=== PATIENT | male | born 1995 | race Two or more races ===

== ENCOUNTER 2019-08-03 21:20 | Inpatient (IN) | payer MEDICAID ==
[~2019-08-03] VITALS: Ht 198.1 cm; Wt 172.4 kg
--- NOTE | 2019-08-03 21:24 | NUR ---
PT AAOX4. AMBULATORY BIBRA C/O PALPITATIONS S/P DRINKING COFFEE. PT DENIES CP. STATED HE FEELS BETTER NOW BUT ONCE HE RUNS, HIS HEART PALPATES. VSS. EMT AT BEDSIDE FOR EKG. AWAITING MD FOR EVAL AND ORDERS.
--- NOTE | 2019-08-03 21:40 | NUR ---
PHLEBTOMIST AT BEDSIDE
[2019-08-03 21:47] LABS: BASOPHILS # (AUTO) 0.1 /CMM (0.0-0.2); BASOPHILS % (AUTO) 0.7 % (0.0-2.0); EOSINOPHILS % (AUTO) 3.6 % (0.0-6.0); HEMATOCRIT 45 % (39-51); LYMPHOCYTES # (AUTO) 3.1 /CMM (0.8-4.8); LYMPHOCYTES % (AUTO) 25.4 % (20.0-44.0); MEAN CORPUSCULAR HGB CONC 34 g/dl (31.0-36.0); MEAN CORPUSCULAR VOLUME 85 fL (80-96); MONOCYTES # (AUTO) 0.6 /CMM (0.1-1.30); MONOCYTES % (AUTO) 4.8 % (2.0-12.0); NEUTROPHILS # (AUTO) 8.1 /CMM (1.8-8.9); NEUTROPHILS % (AUTO) 65.5 % (43.0-81.0); PLATELET COUNT (AUTO) 257 /CMM (150-450); RED BLOOD CELL COUNT(AUTO) 5.23 MIL/uL (4.5-6.0); WHITE BLOOD COUNT (AUTO) 12.3 K/uL (4.3-11.0)
[2019-08-03 21:55] LABS: CALCIUM, SERUM 9.4 mg/dL (8.5-10.1); CARBON DIOXIDE 29 mmol/L (21-32); CHLORIDE 104 mmol/L (98-107); GLUCOSE 127 mg/dL (74-106); POTASSIUM 3.8 mmol/L (3.5-5.1); SODIUM SERUM 140 mmol/L (136-145); UREA NITROGEN, BLOOD 9 mg/dL (7-18)
[2019-08-03 22:03] LABS: ALCOHOL, BLOOD < 3 mg/dL (0-0); MAGNESIUM 2.2 mg/dL (1.8-2.4)
[2019-08-03 22:25] LABS: THYROID STIMULATING HORMONE 2.695 uIU/mL (0.358-3.74)
[2019-08-03] MEDS ORDERED: IV NS 0.9% 1,000 ML IV ONE (22:30)
[2019-08-03] MEDS ORDERED: LORAZEPAM INJ 2 MG/ML VIAL IV ONE (22:30)
--- NOTE | 2019-08-03 22:58 | NUR ---
BED ASSIGNMENT 326-1
--- NOTE | 2019-08-03 23:51 | NUR ---
DR. SWENSON SPEAKING WITH HOSPITALIST
[2019-08-04] VITALS: BP 155/74
--- NOTE | 2019-08-04 00:21 | NUR ---
REPORT GIVEN TO GARRICK JULIAN FOR LUIGI
--- NOTE | 2019-08-04 00:28 | NUR ---
PT TRANSFERED PER ACLS PROT[employer]
[2019-08-04 00:30] VITALS: BP 155/74
--- NOTE | 2019-08-04 00:30 | NUR ---
PET AMBASSADORPERSONAL SHOPPER NOTES PATIENT TRANSFERRED FROM ER VIA [facility] IN STABLE CONDITION; ADMITTED FOR NEW ONSET AFIB. A/OX4. ABLE TO VERBALIZE NEEDS. PATIENT DENIES ANY SOB OR CHEST PAIN. TELE MONITOR READING AFIB, HEART RATE 95-100. IV PRESENT ON RIGHT HAND, SIZE 20, INTACT & PATENT HEP LOCKED. BELONGINGS REVIEWED WITH PATIENT AND BELONGINGS LIST PLACED IN CHART. MRSA SWAB COMPLETED IN ER. NO HOME MEDS REPORTED. DRAPERY ROD ASSEMBLER HOME ADMINISTRATOR, MEAGHAN BEAULIEU MADE AWARE OF NEW ADMISSION; AWAITING ORDERS. SAFETY MEASURES IN PLACE AND PATIENT'S NEEDS MET. BED LOCKED, SIDE RAILS X2, CALL LIGHT WITHIN REACH. WILL CONTINUE TO MONITOR.
[2019-08-04] MEDS ORDERED: ACETAMINOPHEN 325 MG TABLET PO PRN (01:30)
[2019-08-04] MEDS ORDERED: hydrALAZINE HCL IV 20 MG VIAL IV PRN (01:30)
[2019-08-04] MEDS ORDERED: MAG HYDROX/AL HYDROX/SIMETH 30 ML UDC PO PRN (01:30)
[2019-08-04] MEDS ORDERED: ONDANSETRON HCL/PF 4 MG/2 ML VIAL IVP PRN (01:30)
[2019-08-04] MEDS ORDERED: Z GUARD REMEDY 2 OZ OINT TP PRN (01:30)
[2019-08-04] MEDS ORDERED: MAGNESIUM HYDROXIDE 30 ML UDC PO PRN (01:30)
[2019-08-04 04:00] VITALS: BP 146/85
[2019-08-04 04:01] VITALS: BP 146/85
--- NOTE | 2019-08-04 06:55 | NUR ---
BAG INSPECTOR CLOSING NOTES PATIENT SLEEPING IN BED, EASY TO AWAKEN. A/OX4. NO S/S SOB; BREATHING IS EVEN AND LABORED. TELE MONITOR READING A-FIB, HEART RATE 80-90S. IV ON RIGHT HAND, SIZE 20, REMAINS INTACT & PATENT, HEP LOCKED. SAFETY MEASURES IN PLACE AND PATIENT'S NEEDS MET. BED LOCKED, SIDE RAILS X2, CALL LIGHT WITHIN REACH. WILL ENDORSE TO DAY SHIFT NURSE PLAN OF CARE.
[2019-08-04] MEDS ORDERED: PANTOPRAZOLE 40 MG TABLET.DR PO SCH (07:30)
[2019-08-04 08:00] VITALS: BP 125/94
--- NOTE | 2019-08-04 08:00 | NUR ---
Patient is A/O x 4 very calm no signs of distress and no shortness of breath in room air. IV Right on the hand #20 G saline lock. Bed is in low settings side rails up for safety. Continue to monitor.
[2019-08-04 08:30] VITALS: BP 131/94
[2019-08-04] MEDS ORDERED: METOPROLOL SUCCINATE 50 MG TAB.SR.24H PO SCH (08:30)
[2019-08-04] MEDS ORDERED: DILTIAZEM HCL CD 120 MG PO SCH (09:00)
[2019-08-04] MEDS ORDERED: NICOTINE PATCH (7MG) 7 MG PATCH.TD24 TD SCH (09:00)
[2019-08-04] MEDS ORDERED: APIXABAN 2.5 MG TABLET PO SCH (09:00)
[2019-08-04] MEDS ORDERED: NICO-760 TD (10:58)
[2019-08-04] MEDS ORDERED: METO50TA7 PO (10:58)
--- NOTE | 2019-08-04 13:43 | NUR ---
HOTEL MANAGER NOTES PT AWAKE, SITTING IN BED, NO COMPLAINT OF PAIN, NOT IN DISTRESS, ABLE TO AMBULATE WITH STEADY GAIT TO THE BATHROOM, SEEN BY DR. MACIAS, PLAN OF CARE DISCUSSED, PT VERBALIZED UNDERSTANDING, DISCHARGE AND MEDICATION INSTRUCTIONS PROVIDED TO PT. VERBALIZED UNDERSTANING, BELONGINGS ACCOUNTED FOR, NEW PRESCRIPTIONS SENT ELECTRONICALLY TO PT'S PREFERRED PHARMACY BY , ASSISTED BY HIMS CODER TO HOSPITAL LOBBY, PICKED UP BY HIS FRIEND, LEFT VIA PRIVATE CAR IN STABLE CONDITION.
[2019-08-04 16:15] LABS: APPEARANCE,URINE CLEAR (CLEAR); BILIRUBIN,URINE NEGATIVE (NEGATIVE); BLOOD, URINE NEGATIVE Ery/uL (NEGATIVE); COLOR,URINE YELLOW (YELLOW); KETONES,URINE NEGATIVE (NEGATIVE); LEUKOCYTE ESTERASE ,URINE NEGATIVE (NEGATIVE); NITRITE, URINE NEGATIVE (NEGATIVE); PROTEIN,URINE NEGATIVE (NEGATIVE); UGLUCOSE NEGATIVE (NEGATIVE); UROBILINOGEN,URINE 0.2 EU/dL (0.2)
== END 2019-08-04 13:45 | disposition home or self-care (01) | DRG 201 ==
LOC: ER 21:23 → TELE 23:17
PROVIDERS: ADMIT Registered Nurse; ATTEND Student in an Organized Health Care Education/Training Program
DX: I48.91 Unspecified atrial fibrillation (principal); E66.01 Morbid (severe) obesity due to excess calories; D72.829 Elevated white blood cell count, unspecified; R73.9 Hyperglycemia, unspecified; F17.200 Nicotine dependence, unspecified, uncomplicated; Z68.41 Body mass index [BMI] 40.0-44.9, adult; F17.210 Nicotine dependence, cigarettes, uncomplicated
CPT/HCPCS: 36415; 71045-TC; 80048-TC; 81000-TC; 83735-TC; 84439-TC; 84443-TC; 84484-TC; 85025-TC; 85730-TC; 87081-TC; 93307-TC; G0378; G0480; J2060; J7030

== ENCOUNTER 2021-07-10 21:42 | Emergency (ER) | payer MEDICAID, OTHER ==
[~2021-07-10] VITALS: Ht 195.6 cm; Wt 209.6 kg
[~2021-07-10 21:42] MED LIST: METO50TA7 PO; NICO-760 TD
[2021-07-10] MEDS ORDERED: ONDANSETRON HCL/PF 4 MG/2 ML VIAL IVP ONE (22:00)
[2021-07-10] MEDS ORDERED: IV NS 0.9% 1,000 ML BAG IV ONE (22:00)
[2021-07-10 23:12] LABS: BASOPHILS # (AUTO) 0.1 K/uL (0.0-0.2); BASOPHILS % (AUTO) 0.5 % (0.0-2.0); EOSINOPHILS % (AUTO) 3.5 % (0.0-6.0); HEMATOCRIT 43 % (39-51); HEMOGLOBIN 14.6 g/dL (13.5-17.5); LYMPHOCYTES # (AUTO) 2.6 K/uL (0.8-4.8); LYMPHOCYTES % (AUTO) 25.2 % (20.0-44.0); MEAN CORPUSCULAR HGB CONC 34 g/dl (31.0-36.0); MEAN CORPUSCULAR VOLUME 84 fL (80-96); MONOCYTES # (AUTO) 0.6 K/uL (0.1-1.30); MONOCYTES % (AUTO) 5.9 % (2.0-12.0); NEUTROPHILS # (AUTO) 6.8 K/uL (1.8-8.9); NEUTROPHILS % (AUTO) 64.9 % (43.0-81.0); PLATELET COUNT (AUTO) 247 K/uL (150-450); RED BLOOD CELL COUNT(AUTO) 5.07 MIL/uL (4.5-6.0); WHITE BLOOD COUNT (AUTO) 10.4 K/uL (4.3-11.0)
[2021-07-10 23:32] LABS: ALBUMIN 3.7 g/dL (3.4-5.0); BILIRUBIN,DIRECT 0.1 mg/dL (0.0-0.2); BILIRUBIN,TOTAL 0.4 mg/dL (0.2-1.0); CALCIUM, SERUM 8.8 mg/dL (8.5-10.1); CREATININE 0.8 mg/dL (0.6-1.3); POTASSIUM 4.1 mmol/L (3.5-5.1); TOTAL PROTEIN, SERUM 7.7 g/dL (6.4-8.2)
[2021-07-11] MEDS ORDERED: ONDANSETRON HCL/PF 4 MG/2 ML VIAL ONE (02:13)
--- NOTE | 2021-07-11 02:15 | NUR ---
BIBS FOR C/O BILATERAL FLANK AND ABD PAIN X FEW DAYS. PT HAS BEEN SEEN RECENTLY IN ED FOR POSSIBLE COLITIS BUT HAS HAD NOT HAD A CHANCE TO FOLLOW UP WITH PRIMARY DOCTOR. PT AWAKE AND ALERT X4 AMBULATORY WITH STEADY GAIT. CHANGED INTO GOWN AND PLACED ON MONITOR AND V/S WNL.
[2021-07-11] MEDS ORDERED: IOHEXOL-300 100 ML VIAL IV ONE (02:35)
[2021-07-11] MEDS ORDERED: IV NS 0.9% 250 ML IV ONE (02:35)
[2021-07-11] MEDS ORDERED: HYDR-4209 PO (02:53)
[2021-07-11] MEDS ORDERED: METR500T PO (02:53)
[2021-07-11] MEDS ORDERED: PRED50TA PO (02:53)
[2021-07-11] MEDS ORDERED: ONDA4TAB11 PO (02:53)
[2021-07-11] MEDS ORDERED: CIPR500T5 PO (02:53)
[2021-07-11] MEDS ORDERED: KETOROLAC TROMETHAMINE INJ 30 MG/ML VIAL IV ONE (03:00)
[2021-07-11] MEDS ORDERED: MORPHINE SULFATE INJ 2 MG/ML DISP.SYRIN IV ONE (03:00)
[2021-07-11] MEDS ORDERED: MORPHINE SULFATE INJ 2 MG/ML DISP.SYRIN ONE (03:10)
[2021-07-11] MEDS ORDERED: KETOROLAC TROMETHAMINE INJ 30 MG/ML VIAL ONE (03:10)
--- NOTE | 2021-07-11 03:24 | NUR ---
Patient discharged to home in stable condition. Written and verbal after care instructions given. Patient verbalizes understanding of instruction.
--- NOTE | 2021-07-11 03:46 | NUR ---
IV removed. Catheter intact and site benign. Pressure and 4x4 applied to site. No bleeding noted. Patient discharged to home in stable condition. Written and verbal after care instructions given. Patient verbalizes understanding of instruction.
[2021-07-11 04:23] VITALS: BP 133/75
[2021-07-11 17:45] LABS: BILIRUBIN,URINE NEGATIVE (NEGATIVE); COLOR,URINE YELLOW (YELLOW); LEUKOCYTE ESTERASE ,URINE NEGATIVE (NEGATIVE); NITRITE, URINE NEGATIVE (NEGATIVE); PROTEIN,URINE NEGATIVE (NEGATIVE); UGLUCOSE NEGATIVE (NEGATIVE)
[2021-07-11 18:30] LABS: BACTERIA,URINE None seen /HPF (None Seen); RBC,URINE 0-2 /HPF (0-2); SQUAMOUS EPITHELIAL CELL,UR 0-2 /HPF (None Seen); WBC,URINE 0-2 /HPF (0-3)
[2021-07-11 18:31] LABS: MUCUS,URINE Few /LPF (None Seen)
== END 2021-07-11 03:30 | disposition home or self-care (01) ==
LOC: ER 21:50
DX: K52.9 Noninfective gastroenteritis and colitis, unspecified (principal); I48.91 Unspecified atrial fibrillation; F17.200 Nicotine dependence, unspecified, uncomplicated; Z79.899 Other long term (current) drug therapy
CPT/HCPCS: 36415; 80048; 80076; 81001; 83690; 85025; 96361; 96374; 96375; 99284; J1885; J2270; J2405; J7030; J7050; Q9967; G0168

== ENCOUNTER 2022-04-19 22:06 | Emergency (ER) | payer OTHER ==
[~2022-04-19] VITALS: Ht 198.1 cm; Wt 201.8 kg
[~2022-04-19 22:06] MED LIST changes: +CIPR500T5 PO; +HYDR-4209 PO; +METR500T PO; +ONDA4TAB11 PO; +PRED50TA PO
--- NOTE | 2022-04-19 22:51 | NUR ---
BIBS S/O DIZZY AND FATIGUE X THURSDAY. HX AFIB. DENIES CP AND SOB. PT IS ALERT AND ORIENTED. RR EVEN AND NON LABORED. AMBULATORY W/ STEADY GAIT. CONNECTED TO POX AND HEART MONITOR. VSS.
--- NOTE | 2022-04-19 23:10 | NUR ---
EKG AT BEDSIDE
--- NOTE | 2022-04-19 23:10 | NUR ---
IV LINE ESTABLISHED, RHAND 20G
--- NOTE | 2022-04-19 23:10 | NUR ---
BLOOD COLLECTED AND SENT TO LAB
--- NOTE | 2022-04-19 23:13 | NUR ---
SECURITY AGENT AT PT'S BEDSIDE
[2022-04-19 23:21] LABS: BASOPHILS % (AUTO) 0.4 % (0.0-2.0); EOSINOPHILS % (AUTO) 3.4 % (0.0-6.0); HEMATOCRIT 43 % (39-51); HEMOGLOBIN 14.2 g/dL (13.5-17.5); LYMPHOCYTES # (AUTO) 2.5 K/uL (0.8-4.8); LYMPHOCYTES % (AUTO) 26.1 % (20.0-44.0); MEAN CORPUSCULAR HGB CONC 33 g/dl (31.0-36.0); MEAN CORPUSCULAR VOLUME 84 fL (80-96); MONOCYTES # (AUTO) 0.5 K/uL (0.1-1.30); MONOCYTES % (AUTO) 5.4 % (2.0-12.0); NEUTROPHILS # (AUTO) 6.2 K/uL (1.8-8.9); NEUTROPHILS % (AUTO) 64.7 % (43.0-81.0); PLATELET COUNT (AUTO) 264 K/uL (150-450); RED BLOOD CELL COUNT(AUTO) 5.12 MIL/uL (4.5-6.0); WHITE BLOOD COUNT (AUTO) 9.6 K/uL (4.3-11.0)
[2022-04-19 23:33] LABS: CARBON DIOXIDE 29 mmol/L (21-32); CHLORIDE 103 mmol/L (98-107); CREATININE 0.9 mg/dL (0.6-1.3); GLUCOSE 140 mg/dL (74-106); POTASSIUM 3.7 mmol/L (3.5-5.1); SODIUM SERUM 138 mmol/L (136-145); UREA NITROGEN, BLOOD 15 mg/dL (7-18)
[2022-04-19 23:46] LABS: ALANINE AMINOTRANSFERASE 143 U/L (12-78); ALBUMIN 3.5 g/dL (3.4-5.0); ALKALINE PHOSPHATASE 85 U/L (46-116); ASPARTATE AMINOTRANSFERASE 54 U/L (15-37); BILIRUBIN,DIRECT 0.1 mg/dL (0.0-0.2); BILIRUBIN,TOTAL 0.3 mg/dL (0.2-1.0); TOTAL PROTEIN, SERUM 7.9 g/dL (6.4-8.2)
[2022-04-20] MEDS ORDERED: MECL-159 PO (00:24)
[2022-04-20] MEDS ORDERED: MECLIZINE HCL 25 MG TABLET ONE (00:25)
[2022-04-20] MEDS ORDERED: MECLIZINE HCL 25 MG TABLET PO ONE (00:30)
--- NOTE | 2022-04-20 00:41 | NUR ---
Patient discharged to home in stable condition. Written and verbal after care instructions given. Patient verbalizes understanding of instruction.
--- NOTE | 2022-04-20 00:41 | NUR ---
IV removed. Catheter intact and site benign. Pressure and 4x4 applied to site. No bleeding noted.
[2022-04-20 00:51] VITALS: BP 137/84
== END 2022-04-20 00:52 | disposition home or self-care (01) ==
LOC: ER 22:19
DX: R42 Dizziness and giddiness (principal); I48.91 Unspecified atrial fibrillation; Z79.899 Other long term (current) drug therapy
CPT/HCPCS: 99285; 71045; 93005; 85025; 80048; 80076; 36415; 84484; 83880; J8597

== ENCOUNTER 2022-07-20 23:34 | Emergency (ER) | payer OTHER ==
[~2022-07-20] VITALS: Ht 195.6 cm; Wt 224.1 kg
[~2022-07-20 23:34] MED LIST changes: +MECL-159 PO
--- NOTE | 2022-07-20 23:45 | NUR ---
BIBS FOR C/O DIARRHEA X 3 DAYS WHICH TURNED TO RECTAL BLEEDING TODAY. PT A/OX4. TOLERATING R/A WELL WITH NO RESP DISTRESS. SAFETY MEASURES IN PLACE .
[2022-07-21] MEDS ORDERED: IV NS 0.9% 1,000 ML IV PRN
--- NOTE | 2022-07-21 00:04 | NUR ---
LAC #18G S/L BLOOD COLLECTED AND SENT TO LAB
[2022-07-21 00:53] LABS: BASOPHILS % (AUTO) 0.6 % (0.0-2.0); EOSINOPHILS % (AUTO) 3.6 % (0.0-6.0); HEMATOCRIT 43 % (39-51); HEMOGLOBIN 14.2 g/dL (13.5-17.5); LYMPHOCYTES # (AUTO) 2.3 K/uL (0.8-4.8); LYMPHOCYTES % (AUTO) 29.1 % (20.0-44.0); MEAN CORPUSCULAR HGB CONC 33 g/dl (31.0-36.0); MEAN CORPUSCULAR VOLUME 83 fL (80-96); MONOCYTES # (AUTO) 0.7 K/uL (0.1-1.30); MONOCYTES % (AUTO) 8.5 % (2.0-12.0); NEUTROPHILS # (AUTO) 4.5 K/uL (1.8-8.9); NEUTROPHILS % (AUTO) 58.2 % (43.0-81.0); PLATELET COUNT (AUTO) 254 K/uL (150-450); RED BLOOD CELL COUNT(AUTO) 5.12 MIL/uL (4.5-6.0); WHITE BLOOD COUNT (AUTO) 7.8 K/uL (4.3-11.0)
[2022-07-21 01:07] LABS: CALCIUM, SERUM 9.5 mg/dL (8.5-10.1); CREATININE 0.9 mg/dL (0.6-1.3); POTASSIUM 3.8 mmol/L (3.5-5.1)
[2022-07-21] MEDS ORDERED: LOPE2CAP PO (01:32)
[2022-07-21] MEDS ORDERED: ONDA4TAB5 PO (01:32)
--- NOTE | 2022-07-21 01:48 | NUR ---
IV removed. Catheter intact and site benign. Pressure and 4x4 applied to site. No bleeding noted.Patient discharged to home in stable condition. Written and verbal after care instructions given. Patient verbalizes understanding of instruction.
[2022-07-21 01:49] VITALS: BP 137/89
== END 2022-07-21 01:50 | disposition home or self-care (01) ==
LOC: ER 23:34
DX: K52.9 Noninfective gastroenteritis and colitis, unspecified (principal); I48.91 Unspecified atrial fibrillation; F17.200 Nicotine dependence, unspecified, uncomplicated; Z79.899 Other long term (current) drug therapy
CPT/HCPCS: 99283; 36415; 96360; 85025; 80048; J7030

== ENCOUNTER 2022-08-03 17:46 | Emergency (ER) | payer OTHER ==
[~2022-08-03] VITALS: Ht 195.6 cm; Wt 217.7 kg
[~2022-08-03 17:46] MED LIST changes: +LOPE2CAP PO; +ONDA4TAB5 PO
[2022-08-03 18:08] VITALS: BP 166/82; TEMP 98.6
--- NOTE | 2022-08-03 19:01 | NUR ---
PATITO C/O RIGHT HAND LACERATION WITH GLASS 2 HOURS AGO. TDAP UP TO DATE.
--- NOTE | 2022-08-03 19:11 | NUR ---
DR BRENDA CLAIRE AT PT'S BEDSIDE FOR EVAL
[2022-08-03] MEDS ORDERED: LIDOCAINE 2% 20 ML MDV ONE (19:19)
[2022-08-03] MEDS ORDERED: LIDOCAINE 2% 20 ML MDV TP ONE (19:30)
--- NOTE | 2022-08-03 20:48 | NUR ---
DR. GUTIERREZ AT BEDSIDE FOR LAC REPAIR
--- NOTE | 2022-08-03 21:06 | NUR ---
Patient discharged to home in stable condition. Written and verbal after care instructions given. Patient verbalizes understanding of instruction.
== END 2022-08-03 21:08 | disposition home or self-care (01) ==
LOC: ER 17:48
DX: S61.218A Laceration without foreign body of other finger without damage to nail, initial encounter (principal); I48.91 Unspecified atrial fibrillation; F17.200 Nicotine dependence, unspecified, uncomplicated; Z79.899 Other long term (current) drug therapy; W25.XXXA Contact with sharp glass, initial encounter; Y93.89 Activity, other specified; Y92.89 Other specified places as the place of occurrence of the external cause; Y99.8 Other external cause status
CPT/HCPCS: 99282; 12001; J3490

== ENCOUNTER 2022-09-21 20:55 | Emergency (ER) | payer OTHER ==
[~2022-09-21] VITALS: Ht 195.6 cm; Wt 221.8 kg
[2022-09-21 22:08] LABS: BASOPHILS # (AUTO) 0.1 K/uL (0.0-0.2); BASOPHILS % (AUTO) 1.2 % (0.0-2.0); EOSINOPHILS # (AUTO) 0.2 K/uL (0.0-0.7); EOSINOPHILS % (AUTO) 1.5 % (0.0-6.0); HEMATOCRIT 44 % (39-51); HEMOGLOBIN 14.6 g/dL (13.5-17.5); LYMPHOCYTES # (AUTO) 2.7 K/uL (0.8-4.8); LYMPHOCYTES % (AUTO) 21.6 % (20.0-44.0); MEAN CORPUSCULAR HEMOGLOBIN 27 PG (26.0-33.0); MEAN CORPUSCULAR HGB CONC 33 g/dl (31.0-36.0); MEAN CORPUSCULAR VOLUME 83 fL (80-96); MONOCYTES # (AUTO) 0.7 K/uL (0.1-1.30); MONOCYTES % (AUTO) 5.6 % (2.0-12.0); NEUTROPHILS # (AUTO) 8.7 K/uL (1.8-8.9); NEUTROPHILS % (AUTO) 70.1 % (43.0-81.0); PLATELET COUNT (AUTO) 268 K/uL (150-450); RED BLOOD CELL COUNT(AUTO) 5.36 MIL/uL (4.5-6.0); RED CELL DISTRIBUTION WIDTH 14.8 % (11.5-15.0); WHITE BLOOD COUNT (AUTO) 12.4 K/uL (4.3-11.0)
[2022-09-21 22:13] LABS: CALCIUM, SERUM 9.5 mg/dL (8.5-10.1); CARBON DIOXIDE 27 mmol/L (21-32); CHLORIDE 100 mmol/L (98-107); GLUCOSE 107 mg/dL (74-106); POTASSIUM 3.5 mmol/L (3.5-5.1); SODIUM SERUM 136 mmol/L (136-145); UREA NITROGEN, BLOOD 11 mg/dL (7-18)
[2022-09-21 22:26] LABS: NT-PRO BNP 53 pg/mL (0-125)
[2022-09-21 23:08] VITALS: BP 142/71; TEMP 98; O2SAT 98
== END 2022-09-21 23:09 | disposition home or self-care (01) ==
LOC: ER 20:57
DX: I48.91 Unspecified atrial fibrillation (principal); R07.89 Other chest pain; I10 Essential (primary) hypertension; F17.200 Nicotine dependence, unspecified, uncomplicated; Z79.899 Other long term (current) drug therapy
CPT/HCPCS: 36415; 71045-TC; 80048-TC; 83880; 84484-TC; 85025-TC

== ENCOUNTER 2022-11-07 22:27 | Emergency (ER) | payer OTHER ==
[~2022-11-07] VITALS: Ht 195.6 cm; Wt 222.3 kg
[2022-11-07 22:49] VITALS: BP 165/83; TEMP 98.1; O2SAT 98
== END 2022-11-08 02:35 | disposition home or self-care (01) ==
LOC: ER 22:29
DX: M25.562 Pain in left knee (principal); I10 Essential (primary) hypertension; I48.91 Unspecified atrial fibrillation; F17.200 Nicotine dependence, unspecified, uncomplicated
CPT/HCPCS: 73564-TC

== ENCOUNTER 2022-12-26 00:26 | Emergency (ER) | payer OTHER ==
[~2022-12-26] VITALS: Ht 195.6 cm; Wt 209.6 kg
[2022-12-26] MEDS ORDERED: IBUPROFEN 400 MG TABLET PO ONE (01:00)
[2022-12-26] MEDS ORDERED: IBUPROFEN 400 MG TABLET ONE (01:08)
[2022-12-26 02:44] VITALS: BP 126/71; TEMP 98.1; O2SAT 99
== END 2022-12-26 02:44 | disposition home or self-care (01) ==
LOC: ER 00:29
DX: M79.602 Pain in left arm (principal); I48.91 Unspecified atrial fibrillation; I11.0 Hypertensive heart disease with heart failure; I50.9 Heart failure, unspecified; F17.200 Nicotine dependence, unspecified, uncomplicated; Z79.899 Other long term (current) drug therapy
CPT/HCPCS: 71045-TC

== ENCOUNTER 2023-01-23 19:42 | Emergency (ER) | payer OTHER ==
[~2023-01-23] VITALS: Ht 195.6 cm; Wt 226.3 kg
[2023-01-23 21:01] VITALS: BP 132/84; TEMP 98.1; O2SAT 98
== END 2023-01-23 21:01 | disposition home or self-care (01) ==
LOC: ER 19:46
DX: N99.820 Postprocedural hemorrhage of a genitourinary system organ or structure following a genitourinary system procedure (principal); I11.0 Hypertensive heart disease with heart failure; I50.9 Heart failure, unspecified; I48.91 Unspecified atrial fibrillation; Z79.899 Other long term (current) drug therapy

== ENCOUNTER 2023-03-23 08:01 | Emergency (ER) | payer OTHER ==
[~2023-03-23] VITALS: Ht 195.6 cm; Wt 217.7 kg
[2023-03-23 08:38] LABS: BASOPHILS % (AUTO) 0.6 % (0.0-2.0); EOSINOPHILS # (AUTO) 0.2 K/uL (0.0-0.7); EOSINOPHILS % (AUTO) 2.6 % (0.0-6.0); HEMATOCRIT 40 % (39-51); HEMOGLOBIN 13.4 g/dL (13.5-17.5); LYMPHOCYTES # (AUTO) 1.9 K/uL (0.8-4.8); LYMPHOCYTES % (AUTO) 23.8 % (20.0-44.0); MEAN CORPUSCULAR HEMOGLOBIN 28 PG (26.0-33.0); MEAN CORPUSCULAR HGB CONC 34 g/dl (31.0-36.0); MEAN CORPUSCULAR VOLUME 83 fL (80-96); MONOCYTES # (AUTO) 0.5 K/uL (0.1-1.30); MONOCYTES % (AUTO) 6.7 % (2.0-12.0); NEUTROPHILS # (AUTO) 5.2 K/uL (1.8-8.9); NEUTROPHILS % (AUTO) 66.3 % (43.0-81.0); PLATELET COUNT (AUTO) 253 K/uL (150-450); RED BLOOD CELL COUNT(AUTO) 4.84 MIL/uL (4.5-6.0); RED CELL DISTRIBUTION WIDTH 14.7 % (11.5-15.0); WHITE BLOOD COUNT (AUTO) 7.9 K/uL (4.3-11.0)
[2023-03-23 09:18] LABS: CALCIUM, SERUM 9.2 mg/dL (8.5-10.1); CARBON DIOXIDE 29 mmol/L (21-32); CHLORIDE 102 mmol/L (98-107); CREATININE 0.7 mg/dL (0.6-1.3); GLUCOSE 106 mg/dL (74-106); POTASSIUM 3.7 mmol/L (3.5-5.1); SODIUM SERUM 136 mmol/L (136-145); UREA NITROGEN, BLOOD 13 mg/dL (7-18)
[2023-03-23] MEDS ORDERED: PANT40TA2 PO (09:59)
[2023-03-23 10:22] VITALS: BP 132/78; TEMP 98.2; O2SAT 100
== END 2023-03-23 10:23 | disposition home or self-care (01) ==
LOC: ER 08:01
DX: R07.89 Other chest pain (principal); I11.0 Hypertensive heart disease with heart failure; I50.9 Heart failure, unspecified; I48.91 Unspecified atrial fibrillation; F17.200 Nicotine dependence, unspecified, uncomplicated; Z79.899 Other long term (current) drug therapy
CPT/HCPCS: 36415; 71045-TC; 80048-TC; 84484-TC; 85025-TC

== ENCOUNTER 2023-05-16 20:21 | Emergency (ER) | payer OTHER ==
[~2023-05-16] VITALS: Ht 195.6 cm; Wt 210.9 kg
[~2023-05-16 20:21] MED LIST changes: +PANT40TA2 PO
[2023-05-16 21:40] LABS: BASOPHILS % (AUTO) 0.4 % (0.0-2.0); EOSINOPHILS # (AUTO) 0.3 K/uL (0.0-0.7); EOSINOPHILS % (AUTO) 3.3 % (0.0-6.0); HEMATOCRIT 40 % (39-51); HEMOGLOBIN 13.5 g/dL (13.5-17.5); LYMPHOCYTES # (AUTO) 2.4 K/uL (0.8-4.8); LYMPHOCYTES % (AUTO) 23.9 % (20.0-44.0); MEAN CORPUSCULAR HEMOGLOBIN 28 PG (26.0-33.0); MEAN CORPUSCULAR HGB CONC 34 g/dl (31.0-36.0); MEAN CORPUSCULAR VOLUME 82 fL (80-96); MONOCYTES # (AUTO) 0.6 K/uL (0.1-1.30); MONOCYTES % (AUTO) 6.2 % (2.0-12.0); NEUTROPHILS # (AUTO) 6.6 K/uL (1.8-8.9); NEUTROPHILS % (AUTO) 66.2 % (43.0-81.0); PLATELET COUNT (AUTO) 263 K/uL (150-450); RED BLOOD CELL COUNT(AUTO) 4.85 MIL/uL (4.5-6.0); RED CELL DISTRIBUTION WIDTH 15.4 % (11.5-15.0); WHITE BLOOD COUNT (AUTO) 9.9 K/uL (4.3-11.0)
[2023-05-16 21:48] LABS: CALCIUM, SERUM 9.3 mg/dL (8.5-10.1); CARBON DIOXIDE 27 mmol/L (21-32); CHLORIDE 100 mmol/L (98-107); CREATININE 0.8 mg/dL (0.6-1.3); GLUCOSE 99 mg/dL (74-106); POTASSIUM 3.6 mmol/L (3.5-5.1); SODIUM SERUM 137 mmol/L (136-145); UREA NITROGEN, BLOOD 13 mg/dL (7-18)
[2023-05-16 21:54] LABS: ALANINE AMINOTRANSFERASE 38 U/L (12-78); ALBUMIN 3.4 g/dL (3.4-5.0); ALKALINE PHOSPHATASE 75 U/L (46-116); ASPARTATE AMINOTRANSFERASE 13 U/L (15-37); BILIRUBIN,DIRECT 0.1 mg/dL (0.0-0.2); BILIRUBIN,TOTAL 0.3 mg/dL (0.2-1.0); TOTAL PROTEIN, SERUM 7.8 g/dL (6.4-8.2)
[2023-05-17 00:04] VITALS: BP 151/47; TEMP 98.3; O2SAT 97
== END 2023-05-17 00:05 | disposition home or self-care (01) ==
LOC: ER 20:21
DX: R07.9 Chest pain, unspecified (principal); I11.0 Hypertensive heart disease with heart failure; I50.9 Heart failure, unspecified; I48.91 Unspecified atrial fibrillation; Z79.899 Other long term (current) drug therapy
CPT/HCPCS: 36415; 71045-TC; 80048-TC; 80076-TC; 84484-TC; 85025-TC

== ENCOUNTER 2023-08-25 21:56 | Emergency (ER) | payer OTHER ==
[~2023-08-25] VITALS: Ht 195.6 cm; Wt 209.6 kg
[2023-08-25 22:53] VITALS: BP 112/64; TEMP 98.4; O2SAT 97
[2023-08-25] MEDS ORDERED: AMOX500C2 PO (23:33)
[2023-08-25] MEDS ORDERED: NAPR-1009 PO (23:33)
[2023-08-25] MEDS ORDERED: HYDROCODONE/APAP 10/325MG TABLET ONE (23:42)
[2023-08-25] MEDS ORDERED: AMOXICILLIN TRIHYDRATE 250 MG CAPSULE ONE (23:42)
[2023-08-25] MEDS: HYDROCODONE/APAP 10/325MG TABLET PO ONE (23:43)
[2023-08-25] MEDS: AMOXICILLIN TRIHYDRATE 500 MG CAPSULE PO ONE (23:43)
== END 2023-08-25 23:48 | disposition home or self-care (01) ==
LOC: ER 21:58
DX: K04.7 Periapical abscess without sinus (principal); I10 Essential (primary) hypertension; I48.91 Unspecified atrial fibrillation; F17.200 Nicotine dependence, unspecified, uncomplicated; Z79.899 Other long term (current) drug therapy; Z79.891 Long term (current) use of opiate analgesic

== ENCOUNTER 2023-09-06 16:21 | Emergency (ER) | payer OTHER ==
[~2023-09-06] VITALS: Ht 195.6 cm; Wt 207.7 kg
[~2023-09-06 16:21] MED LIST changes: +AMOX500C2 PO; +NAPR-1009 PO
[2023-09-06] MEDS ORDERED: IBUPROFEN 600 MG TABLET ONE (17:28)
[2023-09-06] MEDS ORDERED: ACETAMINOPHEN ES 500 MG TABLET ONE (17:28)
[2023-09-06] MEDS: IBUPROFEN 600 MG TABLET PO ONE (17:30)
[2023-09-06] MEDS: ACETAMINOPHEN ES 500 MG TABLET PO ONE (17:30)
[2023-09-06 17:33] LABS: CALCIUM, SERUM 8.7 mg/dL (8.5-10.1); CREATININE 0.6 mg/dL (0.6-1.3); POTASSIUM 3.9 mmol/L (3.5-5.1)
[2023-09-06 17:52] LABS: BASOPHILS # (AUTO) 0.1 K/uL (0.0-0.2); BASOPHILS % (AUTO) 0.6 % (0.0-2.0); EOSINOPHILS # (AUTO) 0.2 K/uL (0.0-0.7); EOSINOPHILS % (AUTO) 2.2 % (0.0-6.0); HEMATOCRIT 39 % (39-51); HEMOGLOBIN 12.6 g/dL (13.5-17.5); LYMPHOCYTES # (AUTO) 1.9 K/uL (0.8-4.8); LYMPHOCYTES % (AUTO) 19.9 % (20.0-44.0); MEAN CORPUSCULAR HEMOGLOBIN 27 PG (26.0-33.0); MEAN CORPUSCULAR HGB CONC 33 g/dl (31.0-36.0); MEAN CORPUSCULAR VOLUME 83 fL (80-96); MONOCYTES # (AUTO) 0.5 K/uL (0.1-1.30); MONOCYTES % (AUTO) 4.9 % (2.0-12.0); NEUTROPHILS # (AUTO) 6.9 K/uL (1.8-8.9); NEUTROPHILS % (AUTO) 72.4 % (43.0-81.0); PLATELET COUNT (AUTO) 258 K/uL (150-450); RED BLOOD CELL COUNT(AUTO) 4.67 MIL/uL (4.5-6.0); RED CELL DISTRIBUTION WIDTH 15.3 % (11.5-15.0); WHITE BLOOD COUNT (AUTO) 9.5 K/uL (4.3-11.0)
[2023-09-06 19:18] VITALS: BP 141/88; TEMP 98; O2SAT 100
== END 2023-09-06 19:18 | disposition home or self-care (01) ==
LOC: ER 17:25
DX: R51.9 Headache, unspecified (principal); I11.0 Hypertensive heart disease with heart failure; I50.9 Heart failure, unspecified; I48.91 Unspecified atrial fibrillation; F17.200 Nicotine dependence, unspecified, uncomplicated; Z79.899 Other long term (current) drug therapy; Z79.891 Long term (current) use of opiate analgesic; Z79.52 Long term (current) use of systemic steroids
CPT/HCPCS: 36415; 80048-TC; 85025-TC

== ENCOUNTER 2024-05-31 16:45 | Emergency (ER) | payer OTHER ==
[~2024-05-31] VITALS: Ht 195.6 cm; Wt 200.0 kg
[2024-05-31 17:14] VITALS: TEMP 99.4
[2024-05-31 17:41] LABS: BASOPHILS % (AUTO) 0.3 % (0.0-2.0); EOSINOPHILS # (AUTO) 0.4 K/uL (0.0-0.7); EOSINOPHILS % (AUTO) 4.5 % (0.0-6.0); HEMATOCRIT 42 % (39-51); HEMOGLOBIN 14.5 g/dL (13.5-17.5); LYMPHOCYTES % (AUTO) 11.8 % (20.0-44.0); MEAN CORPUSCULAR HEMOGLOBIN 28 PG (26.0-33.0); MEAN CORPUSCULAR HGB CONC 35 g/dl (31.0-36.0); MEAN CORPUSCULAR VOLUME 81 fL (80-96); MONOCYTES # (AUTO) 0.5 K/uL (0.1-1.30); MONOCYTES % (AUTO) 6.3 % (2.0-12.0); NEUTROPHILS # (AUTO) 6.7 K/uL (1.8-8.9); NEUTROPHILS % (AUTO) 77.1 % (43.0-81.0); PLATELET COUNT (AUTO) 269 K/uL (150-450); RED BLOOD CELL COUNT(AUTO) 5.17 MIL/uL (4.5-6.0); RED CELL DISTRIBUTION WIDTH 15.2 % (11.5-15.0); WHITE BLOOD COUNT (AUTO) 8.7 K/uL (4.3-11.0)
[2024-05-31] MEDS ORDERED: ONDANSETRON HCL/PF 4 MG/2 ML VIAL ONE (17:51)
[2024-05-31] MEDS: ONDANSETRON HCL/PF 4 MG/2 ML VIAL IVP ONE (17:52)
[2024-05-31] MEDS: IV NS 0.9% 500 ML BAG IV ONE (17:52)
[2024-05-31 18:01] LABS: CALCIUM, SERUM 9.4 mg/dL (8.5-10.1); CREATININE 0.9 mg/dL (0.6-1.3); POTASSIUM 3.7 mmol/L (3.5-5.1)
[2024-05-31] MEDS ORDERED: ONDA4TAB11 PO (18:06)
[2024-05-31 18:43] VITALS: BP 122/78; O2SAT 99
== END 2024-05-31 18:45 | disposition home or self-care (01) ==
LOC: ER 16:51
DX: R19.7 Diarrhea, unspecified (principal); R11.2 Nausea with vomiting, unspecified; R25.2 Cramp and spasm; R14.0 Abdominal distension (gaseous); I11.0 Hypertensive heart disease with heart failure; I50.9 Heart failure, unspecified; Z79.899 Other long term (current) drug therapy; Z86.79 Personal history of other diseases of the circulatory system; Z87.891 Personal history of nicotine dependence
CPT/HCPCS: 99283; 96374; 96361; 85025; 80048; 36415; J2405; J7040